=== PATIENT | female | born 1975 | race American Indian/Alaskan Native ===

== ENCOUNTER 2020-02-24 13:46 | Emergency (ER) | payer OTHER ==
[2020-02-24 14:15] VITALS: BP 134/89
--- NOTE | 2020-02-24 14:28 | Emergency Department Report ---
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 and she is worried about coronavirus she has no CP, no SOB, no fever, no cough, no n/v/d no PMHx no allergies to meds went through menopause no daily meds vitals are normal on exam: Non toxic appearing, no acute distress, no toxic appearing atraumatic, normocephalic normal appearance of the eyes, PERRL, EOMI, no periorbital edema or ecchymosis FROM of the neck, no meningeal signs moist mucus membranes, normal TMs and canals, normal oropharynx, no frontal or maxillary sinus ttp regular heart rate and rhythm, no gallops, no rubs, no murmurs breath sounds are clear bilaterally, no w/r/r A&O x4, no focal neuro deficit, normal finger to nose, normal heel to herrera, 5/5 strength in the BUE/BLE, sensation intact throughout, normal gait, CN II-XII intact, no facial asymmetry skin is warm, dry, intact Patient presenting with mild headache that improved after Tylenol Patient was given reassurance She has no clinical signs symptoms of sinusitis, SAH, CVA, meningitis, no HTN emergency Patient denies any recent travel or contact with COVID 19 positive patient she does not have any signs and symptoms of COVID 19 at time advised pt may take tylenol or excedrin as needed for headache. please increase your water intake. follow up with a primary care doctor. return to the emergency room immediately for any new or worsening symptoms such as severe headache, vision changes, numbness, weakness, facial droop, difficulty with speech or walking, high fever, difficulty moving your neck, episodes of passing out, shortness of breath, etc. Medical screening examination performed and there is no threat to life or limb at this time - Exam Vital Signs: Vital Signs 02/24/20 14:00 Temperature 98.2 F Pulse Rate 83 Respiratory 18 Rate Blood Pressure 134/89 O2 Sat by Pulse 99 Oximetry MSE screening note: Focused history and physical exam performed. ED Disposition for MSE Clinical Impression: Headache Qualifiers: Headache type: unspecified Headache chronicity pattern: acute headache Intractability: not intractable Qualified Code(s): R51 - Headache Disposition: Z- MED SCREENING EXAM-LEFT Is pt being admited?: No Does the pt Need Aspirin: No Condition: Stable Instructions: Acute Headache (ED) Additional Instructions: may take tylenol or excedrin as needed for headache. please increase your water intake. follow up with a primary care doctor. return to the emergency room immediately for any new or worsening symptoms such as severe headache, vision changes, numbness, weakness, facial droop, difficulty with speech or walking, high fever, difficulty moving your neck, episodes of passing out, shortness of breath, etc. Referrals: MICHELLE LEYVA MD [Staff Physician] - 2-3 Days [facility] [Provider Group] - 2-3 Days [facility] [Outside] - 2-3 Days [facility] [Outside] - 2-3 Days Time of Disposition: 14:28 Print Language: CHINESE
== END 2020-02-24 14:45 | disposition left against medical advice (07) ==
LOC: ED 13:46
DX: R51 Headache (principal)
CPT/HCPCS: 99281

== ENCOUNTER 2021-03-30 11:12 | Emergency (ER) | payer OTHER ==
[2021-03-30 12:06] VITALS: BP 126/82
[2021-03-30] MEDS ORDERED: HEPARIN 10,000 UNITS/10 ML VIAL IV PRN (14:27)
[2021-03-30 15:03] LABS: Basophils % (Auto) 0.4 % (0.0-1.8); Eosinophils # (Auto) 0.2 K/mm3 (0.0-0.4); Eosinophils % (Auto) 3.5 % (0.0-4.3); Hematocrit 41.8 % (30.3-42.9); Hemoglobin 13.5 gm/dl (10.1-14.3); Lymphocytes # (Auto) 1.9 K/mm3 (1.2-5.4); Lymphocytes % (Auto) 42.4 % (13.4-35.0); Mean Corpuscular HGB Conc 32 % (30-34); Mean Corpuscular Volume 77 fl (79-97); Monocytes # (Auto) 0.4 K/mm3 (0.0-0.8); Monocytes % (Auto) 9.3 % (0.0-7.3); Platelet Count 189 K/mm3 (140-440); Red Blood Count 5.41 M/mm3 (3.65-5.03); Red Cell Distribution Width 14.7 % (13.2-15.2)
[2021-03-30 15:13] LABS: INR 0.95 (0.87-1.13)
[2021-03-30 15:14] LABS: Partial Thromboplastin Time 29.3 Sec. (24.2-36.6)
--- NOTE | 2021-03-30 15:15 | Event Note ---
ED Screening Note Date of service: 03/30/21 Time: 15:13 ED Screening Note: 6-year-old female with no significant past history was brought to the ER today with complaints of elevated blood pressure, palpitation and difficulty sleeping. states that they checked patient blood pressure today and was high but the reading was mainly 130 over 90s and heart rate was between 80s and 90s. He states the reason why he checked the blood pressures because patient has been complaining of palpitations for the past 3 to 4 days. He also reports that patient has been having difficulty sleeping but this has been going on for a long time. Patient states that she has 1 cup of caffeine a day. She is not on any weight loss medicine no other should do any decongestions from [id number] and she denies any thyroid disease. Patient states that she did come back from [place] about a month ago. She denies any calf pain or leg swelling. This initial assessment/diagnostic orders/clinical plan/treatment(s) is/are subject to change based on patients health status, clinical progression and re-assessment by fellow clinical providers in the ED. Further treatment and workup at subsequent clinical providers discretion. Patient/guardian urged not to elope from the ED as their condition may be serious if not clinically assessed and managed. Initial orders include: Cardiac work-up
[2021-03-30 15:24] LABS: Alanine Aminotransferase 17 units/L (7-56); Albumin 4.4 g/dL (3.9-5); Blood Urea Nitrogen 9 mg/dL (7-17); Hemolysis Index 6
[2021-03-30 15:28] LABS: BUN/Creatinine Ratio 23
--- NOTE | 2021-03-30 15:52 | XRay Report ---
CHEST 1 VIEW 1506 INDICATION / CLINICAL INFORMATION: Dysrhythmia COMPARISON: 08/12/2019 FINDINGS: SUPPORT DEVICES: None HEART / MEDIASTINUM: No significant abnormality. LUNGS / PLEURA: No significant pulmonary or pleural abnormality. No pneumothorax. ADDITIONAL FINDINGS: No significant additional findings. IMPRESSION: No significant acute abnormality Signer Name: Dain Stewart MD Signed: 03/30/2021 3:48 PM Workstation Name: [id number]
[2021-03-30 17:04] LABS: Amphetamine Screen,Urine PRESUMPTIVE NEGATIVE; Benzodiazepines Screen,Urine PRESUMPTIVE NEGATIVE; Cannabinoid Screen,Urine PRESUMPTIVE NEGATIVE; Cocaine Screen,Urine PRESUMPTIVE NEGATIVE; Methadone Screen,Urine PRESUMPTIVE NEGATIVE; Opiate Screen,Urine PRESUMPTIVE NEGATIVE
--- NOTE | 2021-03-30 20:14 | Emergency Department Report ---
ED Palpitations HPI - General Chief Complaint: Arrhythmia/Palpitations Stated Complaint: HIGH BLOOD PRESSURE Time Seen by Provider: 03/30/21 14:19 Source: patient Mode of arrival: Ambulatory Limitations: No Limitations - History of Present Illness Initial Comments: This is a 46-year-old female nontoxic, well nourished in appearance, no acute signs of distress presents to the ED with c/o of acute on chronic intermittent elevated blood pressure, palpitation and difficulty sleeping times several months. Patient stated that she has taken her blood pressure today and was mainly 130 over 90s and heart rate was in the 80s. Currently patient denies any symptoms of heart palpitation. Stated is intermittent. Patient denies otherwise any chest pain or any other complaints or symptoms. Patient stated has been drinking coffee about 1 cup every day. Patient denies any upper respiratory symptoms. Patient denies any shortness of breath, hemoptysis, f ever, chills, nausea, vomiting, headache, stiff neck, numbness, tingling, abdominal pain. Patient denies pleuritic chest pain. Patient denies any recent travels or long car rides. Patient denies any recent surgeries or any sick contacts. Patient denies any drug allergies or significant past medical history. MD Complaint: palpitations -: month(s) Associated Symptoms: denies other symptoms. denies: chest pain, shortness of breath, syncope, near-syncope, nausea/vomiting, anxiety, diaphoresis, cough, parasthesias, feeling of impending doom, muscle cramps - Related Data Previous Rx's Medication Instructions Recorded Last Taken Type Esomeprazole Magnesium [NexIUM] 40 mg PO QDAY #30 capsule. 08/12/19 Unknown Rx RX: Sucralfate [Carafate] 1 gm PO ACHS #120 tablet 08/12/19 Unknown Rx Allergies Allergy/AdvReac Type Severity Reaction Status Date / Time No Known Allergies Allergy Unverified 08/12/19 10:20 ED Review of Systems ROS: Stated complaint: HIGH BLOOD PRESSURE Other details as noted in HPI Comment: All other systems reviewed and negative Constitutional: denies: chills, fever Eyes: denies: eye pain, eye discharge, vision change ENT: denies: ear pain, throat pain Respiratory: denies: cough, shortness of breath, wheezing Cardiovascular: palpitations. denies: chest pain, dyspnea on exertion, orthopnea, edema, syncope, paroxysmal nocturnal dyspnea Endocrine: no symptoms reported Gastrointestinal: denies: abdominal pain, nausea, diarrhea Genitourinary: denies: urgency, dysuria, discharge Musculoskeletal: denies: back pain, joint swelling, arthralgia Skin: denies: rash, lesions Neurological: denies: headache, weakness, paresthesias Psychiatric: denies: anxiety, depression Hematological/Lymphatic: denies: easy bleeding, easy bruising ED Past Medical Hx - Past Medical History Previous Medical History?: No - Surgical History Additional Surgical History: Left knee surgery - Social History Smoking Status: Never Smoker Substance Use Type: None - Medications Home Medications: Home Medications Medication Instructions Recorded Confirmed Last Taken Type Esomeprazole Magnesium [NexIUM] 40 mg PO QDAY #30 capsule. 08/12/19 Unknown Rx RX: Sucralfate [Carafate] 1 gm PO ACHS #120 tablet 08/12/19 Unknown Rx ED Physical Exam - General Limitations: No Limitations General appearance: alert, in no apparent distress - Head Head exam: Present: atraumatic, normocephalic - Eye Eye exam: Present: normal appearance - Neck Neck exam: Present: normal inspection, full ROM. Absent: tenderness, m eningismus, lymphadenopathy - Respiratory Respiratory exam: Present: normal lung sounds bilaterally. Absent: respiratory distress, wheezes, rales, rhonchi, stridor, chest wall tenderness, accessory muscle use, decreased breath sounds, prolonged expiratory - Cardiovascular Cardiovascular Exam: Present: regular rate, normal rhythm, normal heart sounds. Absent: bradycardia, tachycardia, irregular rhythm, systolic murmur, diastolic murmur, rubs, gallop - GI/Abdominal GI/Abdominal exam: Present: soft, normal bowel sounds. Absent: distended, tenderness, guarding, rebound, rigid, diminished bowel sounds, bruit - Extremities Exam Extremities exam: Present: normal inspection, full ROM - Back Exam Back exam: Present: normal inspection, full ROM. Absent: tenderness - Neurological Exam Neurological exam: Present: alert, oriented X3, normal gait - Psychiatric Psychiatric exam: Present: normal affect, normal mood - Skin Skin exam: Present: warm, dry, intact, normal color. Absent: rash ED Course Vital Signs 03/30/21 12:06 Temperature 98.1 F Pulse Rate 82 Respiratory 18 Rate Blood Pressure 126/82 [Right] O2 Sat by Pulse 98 Oximetry - Reevaluation(s) Reevaluation #1: 03/30/21 20:11 Patient is speaking in full sentences with no signs of distress noted. - Consultations Consultation #1: 03/30/21 20:57 Patient has been consulted with Dr. Jonathan V about patient history, physical exam, and labs/EKG/CXR and patient can be discharged with follow-up. ED Medical Decision Making - Lab Data Result diagrams: 03/30/21 14:40 03/30/21 14:40 Lab Results 03/30/21 03/30/21 03/30/21 Range/Units 14:27 14:40 14:40 WBC 4.4 L (4.5-11.0) K/mm3 RBC 5.41 H (3.65-5.03) M/mm3 Hgb 13.5 (10.1-14.3) gm/dl Hct 41.8 (30.3-42.9) % MCV 77 L (79-97) fl MCH 25 L (28-32) pg MCHC 32 (30-34) % RDW 14.7 (13.2-15.2) % Plt Count 189 (140-440) K/mm3 Lymph % (Auto) 42.4 H (13.4-35.0) % [place] % (Auto) 9.3 H (0.0-7.3) % Eos % (Auto) 3.5 (0.0-4.3) % Baso % (Auto) 0.4 (0.0-1.8) % Lymph # (Auto) 1.9 (1.2-5.4) K/mm3 [place] # (Auto) 0.4 (0.0-0.8) K/mm3 Eos # (Auto) 0.2 (0.0-0.4) K/mm3 Baso # (Auto) 0.0 (0.0-0.1) K/mm3 Seg Neutrophils % 44.4 (40.0-70.0) % Seg Neutrophils # 2.0 (1.8-7.7) K/mm3 PT 12.5 (12.2-14.9) Sec. INR 0.95 (0.87-1.13) APTT 29.3 (24.2-36.6) Sec. Sodium (137-145) mmol/L Potassium (3.6-5.0) mmol/L Chloride (98-107) mmol/L Carbon Dioxide (22-30) mmol/L Anion Gap mmol/L BUN (7-17) mg/dL Creatinine (0.6-1.2) mg/dL Estimated GFR ml/min BUN/Creatinine Ratio % Glucose (65-100) mg/dL Calcium (8.4-10.2) mg/dL Magnesium (1.7-2.3) mg/dL Total Bilirubin (0.1-1.2) mg/dL AST (5-40) units/L ALT (7-56) units/L Alkaline Phosphatase (35-129) units/L Troponin T (0.00-0.029) ng/mL Total Protein (6.3-8.2) g/dL Albumin (3.9-5) g/dL Albumin/Globulin Ratio % TSH (0.270-4.200) mlU/mL Urine Opiates Screen Presumptive negative Urine Methadone Screen Presumptive negative Ur Barbiturates Screen Presumptive negative Ur Phencyclidine Scrn Presumptive negative Ur Amphetamines Screen Presumptive negative U Benzodiazepines Scrn Presumptive negative Urine Cocaine Screen Presumptive negative U Marijuana (THC) Screen Presumptive negative Drugs of Abuse Note Disclamer 03/30/21 03/30/21 03/30/21 Range/Units 14:40 15:30 15:30 WBC (4.5-11.0) K/mm3 RBC (3.65-5.03) M/mm3 Hgb (10.1-14.3) gm/dl Hct (30.3-42.9) % MCV (79-97) fl MCH (28-32) pg MCHC (30-34) % RDW (13.2-15.2) % Plt Count (140-440) K/mm3 Lymph % (Auto) (13.4-35.0) % [place] % (Auto) (0.0-7.3) % Eos % (Auto) (0.0-4.3) % Baso % (Auto) (0.0-1.8) % Lymph # (Auto) (1.2-5.4) K/mm3 [place] # (Auto) (0.0-0.8) K/mm3 Eos # (Auto) (0.0-0.4) K/mm3 Baso # (Auto) (0.0-0.1) K/mm3 Seg Neutrophils % (40.0-70.0) % Seg Neutrophils # (1.8-7.7) K/mm3 PT (12.2-14.9) Sec. INR (0.87-1.13) APTT (24.2-36.6) Sec. Sodium 138 (137-145) mmol/L Potassium 4.1 (3.6-5.0) mmol/L Chloride 102.3 (98-107) mmol/L Carbon Dioxide 26 (22-30) mmol/L Anion Gap 14 mmol/L BUN 9 (7-17) mg/dL Creatinine 0.4 L (0.6-1.2) mg/dL Estimated GFR > 60 ml/min BUN/Creatinine Ratio 23 % Glucose 80 (65-100) mg/dL Calcium 9.0 (8.4-10.2) mg/dL Magnesium 2.10 (1.7-2.3) mg/dL Total Bilirubin 0.20 (0.1-1.2) mg/dL AST 21 (5-40) units/L ALT 17 (7-56) units/L Alkaline Phosphatase 68 (35-129) units/L Troponin T < 0.010 (0.00-0.029) ng/mL Total Protein 7.5 (6.3-8.2) g/dL Albumin 4.4 (3.9-5) g/dL Albumin/Globulin Ratio 1.4 % TSH 2.300 (0.270-4.200) mlU/mL Urine Opiates Screen Urine Methadone Screen Ur Barbiturates Screen Ur Phencyclidine Scrn Ur Amphetamines Screen U Benzodiazepines Scrn Urine Cocaine Screen U Marijuana (THC) Screen Drugs of Abuse Note 03/30/21 Range/Units 19:02 WBC (4.5-11.0) K/mm3 RBC (3.65-5.03) M/mm3 Hgb (10.1-14.3) gm/dl Hct (30.3-42.9) % MCV (79-97) fl MCH (28-32) pg MCHC (30-34) % RDW (13.2-15.2) % Plt Count (140-440) K/mm3 Lymph % (Auto) (13.4-35.0) % [place] % (Auto) (0.0-7.3) % Eos % (Auto) (0.0-4.3) % Baso % (Auto) (0.0-1.8) % Lymph # (Auto) (1.2-5.4) K/mm3 [place] # (Auto) (0.0-0.8) K/mm3 Eos # (Auto) (0.0-0.4) K/mm3 Baso # (Auto) (0.0-0.1) K/mm3 Seg Neutrophils % (40.0-70.0) % Seg Neutrophils # (1.8-7.7) K/mm3 PT (12.2-14.9) Sec. INR (0.87-1.13) APTT (24.2-36.6) Sec. Sodium (137-145) mmol/L Potassium (3.6-5.0) mmol/L Chloride (98-107) mmol/L Carbon Dioxide (22-30) mmol/L Anion Gap mmol/L BUN (7-17) mg/dL Creatinine (0.6-1.2) mg/dL Estimated GFR ml/min BUN/Creatinine Ratio % Glucose (65-100) mg/dL Calcium (8.4-10.2) mg/dL Magnesium (1.7-2.3) mg/dL Total Bilirubin (0.1-1.2) mg/dL AST (5-40) units/L ALT (7-56) units/L Alkaline Phosphatase (35-129) units/L Troponin T < 0.010 (0.00-0.029) ng/mL Total Protein (6.3-8.2) g/dL Albumin (3.9-5) g/dL Albumin/Globulin Ratio % TSH (0.270-4.200) mlU/mL Urine Opiates Screen Urine Methadone Screen Ur Barbiturates Screen Ur Phencyclidine Scrn Ur Amphetamines Screen U Benzodiazepines Scrn Urine Cocaine Screen U Marijuana (THC) Screen Drugs of Abuse Note - EKG Data 03/30/21 20:12 Normal sinus rhythm with no significant ST or T wave abnormalities. Heart rate 73. Reviewed and signed by 03/30/21 20:57 Normal sinus rhythm at 75 bpm. Abnormal R prog. Reviewed and signed by Dr. Castillo, V. - Radiology Data [facility] [address] [place] [address] XRay Report Signed Patient: MICHELINE SUTTON MR#: [id number] : 1975 Acct:[id number] Age/Sex: 46 / F ADM Date: 03/30/21 Loc: ED Attending Dr: Ordering Physician: MAY SABA Date of Service: 03/30/21 Procedure(s): XR chest 1V ap Accession Number(s): [id number] cc: MAY SABA Fluoro Time In Minutes: CHEST 1 VIEW 1506 INDICATION / CLINICAL INFORMATION: Dysrhythmia COMPARISON: 08/12/2019 FINDINGS: SUPPORT DEVICES: None HEART / MEDIASTINUM: No significant abnormality. LUNGS / PLEURA: No significant pulmonary or pleural abnormality. No pneumothorax. ADDITIONAL FINDINGS: No significant additional findings. IMPRESSION: No significant acute abnormality Signer Name: Dain Stewart MD Signed: 03/30/2021 3:48 PM Workstation Name: [id number] Transcribed By: GJ Dictated By: Dain Stewart MD Electronically Authenticated By: Dain Stewart MD Signed Date/Time: 03/30/21 154 DD/ 46 TD/TT: - Medical Decision Making This is a 46-year-old female that presents with heart palpitation most likely secondary to drinking coffee. Patient is stable and was examined by me. MAGALI and HEART score 2 points. PERC score for DVT/SVT/PE 0 points. EKG obtained. Patient reviewed with Dr. Castillo and pt needs o/p follow-up. Chest xray dictated by the radiologist. PAtient is notified of the Xray report with no questions noted. Labs within normal limits. Negative troponin x2. Patient was instructed to Follow-up with a primary care/scuba diving teacher doctor in 2 days or if symptoms worsen and continue return to emergency room as soon as possible. At time of discharge, the patient does not seem toxic or ill in appearance. No acute signs of distress noted. Patient agrees to discharge treatment plan of care. No further questions noted by the patient. Critical care attestation.: If time is entered above; I have spent that time in minutes in the direct care of this critically ill patient, excluding procedure time. ED Disposition Clinical Impression: Heart palpitations Disposition: DC-01 TO HOME OR SELFCARE Is pt being admited?: No Does the pt Need Aspirin: No Condition: Stable Instructions: Palpitations, [id number] Additional Instructions: Follow-up with a primary care/scuba diving teacher doctor in 2 days or if symptoms worsen and continue return to emergency room as soon as possible. Referrals: PRIMARY CAREMD [Primary Care Provider] - 3-5 Days MICHELLE LEYVA MD [Staff Physician] - 3-5 Days SARANYA SANTOS MD [Staff Physician] - 04/01/21 Forms: Work/School Release Form(ED) Time of Disposition: 21:02 HEART Score - HEART Score History: Slightly suspicious EKG: Non-specific Age: 45-65 Risk factors: No known risk factors Troponin: Troponin T < 0.010 ng/mL (0.00-0.029) 03/30/21 19:02 Troponin: < normal limit HEART Score: 2 - Critical Actions Critical Actions: 0-3 pts:0.9-1.7%risk of adverse cardiac event.Candidate for discharge
--- NOTE | 2021-04-02 11:36 | Electrocardiograph Report ---
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
--- NOTE | 2021-04-02 11:41 | Electrocardiograph Report ---
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
== END 2021-03-30 21:05 | disposition home or self-care (01) ==
LOC: ED 11:12
DX: R00.2 Palpitations (principal); Z79.899 Other long term (current) drug therapy; Z98.890 Other specified postprocedural states
CPT/HCPCS: 36415; 71045; 80053; 80307; 83735; 84443; 84484; 85025; 85610; 85730; 93005